=== PATIENT | male | born 1950 | race Caucasian/White ===

== ENCOUNTER 2018-05-19 20:34 | Emergency (ER) | payer MEDICARE ==
[~2018-05-19] VITALS: Ht 185.4 cm; Wt 111.1 kg
[2018-05-19] MEDS ORDERED: METFORMIN HCL500 MG PO (20:53)
[2018-05-19] MEDS ORDERED: PRINIVIL20 MG PO (20:54)
[2018-05-19] MEDS ORDERED: LOVASTATIN 20 M20 MG PO (20:54)
[2018-05-19] MEDS ORDERED: HYDROCHLOROTHIA25 M2 PO (20:54)
[2018-05-19 21:20] VITALS: BP 117/71
== END 2018-05-19 21:20 | disposition home or self-care (01) ==
LOC: M.ERS 20:34
DX: S09.8XXA Other specified injuries of head, initial encounter (principal); X58.XXXA Exposure to other specified factors, initial encounter; Y93.89 Activity, other specified; Y92.89 Other specified places as the place of occurrence of the external cause; Y99.8 Other external cause status